=== PATIENT | male | born 1990 | race Caucasian/White ===

== ENCOUNTER 2017-03-02 14:07 | Emergency (ER) | payer OTHER ==
[~2017-03-02] VITALS: Ht 172.7 cm; Wt 70.0 kg
[2017-03-02] MEDS ORDERED: TRAMADOL HYDROC50 MG PO (15:00)
[2017-03-02] MEDS ORDERED: FLEXERIL PO (15:00)
[2017-03-02] MEDS ORDERED: MOTRIN800 MG PO (15:00)
[2017-03-02 15:04] VITALS: BP 110/68
== END 2017-03-02 15:10 | disposition home or self-care (01) | DRG 552 ==
LOC: ED 14:07
DX: S16.1XXA Strain of muscle, fascia and tendon at neck level, initial encounter (principal); S29.012A Strain of muscle and tendon of back wall of thorax, initial encounter; V48.5XXA Car driver injured in noncollision transport accident in traffic accident, initial encounter; Y92.411 Interstate highway as the place of occurrence of the external cause